=== PATIENT | female | born 1935 ===

== ENCOUNTER 2017-09-23 18:50 | Emergency (ER) | payer MEDICARE ==
[2017-09-23 18:59] VITALS: RESP 20
[2017-09-23] MEDS ORDERED: Tdap Vaccine 0.5 ml Vial (10-64 yrs) IM ONE ×2 (19:16→19:42)
[2017-09-23] MEDS ORDERED: Lidocaine 1% (10 ml) Inj INJ ONE (19:27)
[2017-09-23] MEDS ORDERED: Lidocaine 1% Inj (20ml) ONE (19:32)
--- NOTE | 2017-09-23 19:42 | ED PDOC ---
HPI: Skin/Bite Injury Time Seen by Provider: 09/23/17 19:08 Chief Complaint (Nursing): Abnormal Skin Integrity Chief Complaint (Provider): Dog Bite History Per: Patient History/Exam Limitations: no limitations Onset/Duration Of Symptoms: Mins Current Symptoms Are (Timing): Still Present Location Of Injury: Left: Arm (bicep) Additional Complaint(s): 81 year old female presents to the emergency department post dog bite. Patient reports she was bitten by the neighbors dog and it was an unprovoked attack. - Animal Bite Description Of The Attack: Unprovoked Attack Description Of The Animal: Neighbor's Pet Animal Appears: Unknown Past Medical History Reviewed: Historical Data, Nursing Documentation, Vital Signs Vital Signs: Last Vital Signs Temp 98.6 F 09/23/17 18:55 Pulse 90 09/23/17 18:55 Resp 20 09/23/17 18:55 BP 165/87 H 09/23/17 18:55 Pulse Ox 98 09/23/17 20:08 - Medical History PMH: No Chronic Diseases - Surgical History Surgical History: No Surg Hx - Family History Family History: States: Unknown Family Hx - Home Medications Home Medications: Ambulatory Orders Medication Instructions Recorded Amoxicillin/Clavulanate [Augmentin 1 tab PO BID #20 tab 09/23/17 875 MG-125 MG] - Allergies Allergies/Adverse Reactions: Allergies Allergy/AdvReac Type Severity Reaction Status Date / Time No Known Allergies Allergy Verified 09/23/17 19:15 Review of Systems ROS Statement: Except As Marked, All Systems Reviewed And Found Negative Musculoskeletal: Positive for: Other (laceration to left bicep) Physical Exam - Reviewed Vital Signs Reviewed: Yes - Physical Exam Appears: Positive for: Non-toxic, No Acute Distress Head Exam: Positive for: ATRAUMATIC Skin: Positive for: Normal Color, Warm, Dry. Negative for: Rash Cardiovascular/Chest: Positive for: Regular Rate, Rhythm, Chest Non Tender. Negative for: Tachycardia Respiratory: Positive for: Normal Breath Sounds. Negative for: Rales, Rhonchi, Wheezing, Respiratory Distress Extremity: Positive for: Other (3cm laceration to left bicep no neuro vascular compromise ). Negative for: Tenderness, Deformity, Swelling Neurologic/Psych: Positive for: Alert, Oriented - Laboratory Results Result Diagrams: 09/23/17 20:51 09/23/17 20:51 - ECG O2 Sat by Pulse Oximetry: 98 (RA) Pulse Ox Interpretation: Normal Medical Decision Making Medical Decision Makin Initial Impression 81 year old female presenting with dog bite Initial Plan: * CMP * CBC * Tetanus 0.5mL IM * Lidocaine Hydrochloride 3mL INJ * Unasyn 3gm NS 100ml IVPB Q6 * Reevaluation 1999 Patient tolerated procedure well. See procedure note for details. Documented by Petrona Sandhu acting as a scribe for Heber Yost MD. All medical record entries made by the Scribe were at my direction and personally dictated by me. I have reviewed the chart and agree that the record accurately reflects my personal performance of the history, physical exam, medical decision making, and the department course for this patient. I have also personally directed, reviewed, and agree with the discharge instructions and disposition. Disposition - Clinical Impression Clinical Impression: Dog bite - Patient ED Disposition Is Patient to be Admitted: No Counseled Patient/Family Regarding: Studies Performed, Diagnosis, Need For Followup, Rx Given - Disposition Referrals: [facility] [Outside] Disposition: Routine/Home Disposition Time: 21:20 Condition: FAIR Prescriptions: Amoxicillin/Clavulanate [Augmentin 875 MG-125 MG] 1 tab PO BID #20 tab Instructions: Animal Bites (DC) Forms: [employer] (Sinhala) Procedure: Wound Repair - Time Performed Time Performed: 19:50 - Time Out Time Out: Side verified, Site verified, Patient ID confirmed, Sterile procedures obs. - Procedure Procedure: Wound Repair: laceration repair - Consent Obtained Consent obtained: Verbal - Performed by Performed by: Attending Physician - Indications Indication(s):: Laceration - Location Location:: Left, Arm (bicep) Dimensions Length cm: 3cm - Irrigated Irrigated with ml of normal saline: copiously with NS - Complexity Complexity:: Simple (one layer) (simple interrupted) - Wound repair method Sutures:: # (10), Size (4:0), Type (Nylon sutures) - Patient tolerated procedure Patient Tolerated Procedure:: Well
[2017-09-23 20:57] LABS: BASO # 0.1 K/uL (0.0-0.2); BASO % 0.9 % (0.0-2.0); EOS # 0.1 K/uL (0.0-0.7); EOS % 0.7 % (0.0-4.0); HEMOGLOBIN 12.5 g/dL (12.0-16.0); LYMPH # 2.1 K/uL (1.0-4.3); LYMPH % 16.5 % (20.0-40.0); MEAN CELL VOLUME 88.9 fl (81.0-99.0); MEAN CORPUSCULAR HEMOGLOBIN 28.9 pg (27.0-31.0); MEAN CORPUSCULAR HGB CONC 32.5 g/dL (33.0-37.0); MEAN PLATELET VOLUME 10.9 fl (7.2-11.7); MONO # 1.1 K/uL (0.0-0.8); MONO % 8.4 % (0.0-10.0); NEUT # 9.3 K/uL (1.8-7.0); NEUT % 73.5 % (50.0-75.0); RBC 4.34 Mil/uL (3.80-5.20); RED CELL DISTRIBUTION WIDTH 15.4 % (11.5-14.5); WHITE BLOOD COUNT 12.7 K/uL (4.8-10.8)
[2017-09-23 21:18] LABS: ALB/GLOB RATIO 1.1 (1.0-2.1); ALBUMIN 4.1 g/dL (3.5-5.0); CALCIUM 9.3 mg/dL (8.4-10.2)
[2017-09-23 22:23] VITALS: BP 156/75; PULSE 87; TEMP 99.1; O2SAT 97
--- NOTE | 2017-09-24 00:05 | CARD ---
APPROVED REPORT EKG Measurement Heart [id number] <Conclusion> Normal sinus rhythm Normal ECG
== END 2017-09-23 22:20 | disposition home or self-care (01) ==
LOC: H.ER 18:50
DX: S41.112A Laceration without foreign body of left upper arm, initial encounter (principal); W54.0XXA Bitten by dog, initial encounter; Y92.89 Other specified places as the place of occurrence of the external cause
CPT/HCPCS: 12001; 80053; 82948; 85025; 90471; 90715; 93005; 96365; 99285; J0295

== ENCOUNTER 2017-09-25 09:43 | Emergency (ER) | payer MEDICARE ==
--- NOTE | 2017-09-25 10:30 | ED PDOC ---
HPI: General Adult Time Seen by Provider: 09/25/17 10:28 Chief Complaint (Nursing): Bite Chief Complaint (Provider): wound check, dog bite History Per: Patient Additional Complaint(s): 81-year-old female presents for wound check of dog bite to left arm sustained 2 days ago. Patient was seen in this ED on September 23 at which time sutures were placed. She was sent home with prescription for Augmentin which she is taking. Patient denies fever or chills, denies any drainage or active bleeding. Tetanus up to date. PMD: Dr. Tao Past Medical History Reviewed: Historical Data, Nursing Documentation, Vital Signs Vital Signs: Last Vital Signs Temp 98.8 F 09/25/17 09:59 Pulse 70 09/25/17 09:59 Resp 21 09/25/17 09:59 BP 119/53 L 09/25/17 09:59 Pulse Ox 96 09/25/17 10:30 - Medical History PMH: Diabetes, HTN, Hypercholesterolemia - Family History Family History: States: No Known Family Hx - Living Arrangements Living Arrangements: With Family - Social History Current smoker - smoking cessation education provided: No Alcohol: None Drugs: Denies - Immunization History Hx Tetanus Toxoid Vaccination: Yes (09/23/2017) - Home Medications Home Medications: Ambulatory Orders Medication Instructions Recorded Amoxicillin/Clavulanate [Augmentin 1 tab PO BID #20 tab 09/23/17 875 MG-125 MG] - Allergies Allergies/Adverse Reactions: Allergies Allergy/AdvReac Type Severity Reaction Status Date / Time No Known Allergies Allergy Verified 09/23/17 19:15 Review of Systems ROS Statement: Except As Marked, All Systems Reviewed And Found Negative Constitutional: Negative for: Fever Skin: Positive for: Other (wound check, laceration to left arm (dog bite)) Physical Exam - Reviewed Nursing Documentation Reviewed: Yes Vital Signs Reviewed: Yes - Physical Exam Appears: Positive for: Well, Non-toxic, No Acute Distress Skin: Negative for: Rash Eye Exam: Positive for: Normal appearance Extremity: Positive for: Other (Sutured laceration noted to medial left upper arm, no infection noted, moderate surrounding ecchymosis noted, no active bleeding, no active drainage, wound appears to be healing well, neurovascular intact) Neurologic/Psych: Positive for: Alert, Oriented - ECG O2 Sat by Pulse Oximetry: 96 Pulse Ox Interpretation: Normal Medical Decision Making Medical Decision Makin-year-old female presents for wound check Wound to left arm is healing well, no infection noted. Area was cleansed with normal saline and Betadine, bacitracin and bandage applied. Patient was struck to to continue with Augmentin and follow up with primary doctor in 2-3 days. Advised suture removal 10-14 days. Disposition - Clinical Impression Clinical Impression: Animal bite wound, Dog bite, Laceration - injury - Patient ED Disposition Is Patient to be Admitted: No Counseled Patient/Family Regarding: Diagnosis, Need For Followup - Disposition Referrals: Aníbal Tao MD [Medical Doctor] - Disposition: Routine/Home Disposition Time: 10:59 Condition: STABLE Additional Instructions: Keep wounds clean and dry. Wash daily with soap and water. Continue with antibiotics to completion. Tylenol as needed for pain. Follow up with primary doctor in 2-3 days. Suture removal in 10 days. Instructions: Animal Bites (DC), Wound Care (DC) Forms: [employer] (Nauruan)
[2017-09-25 11:19] VITALS: BP 128/78; PULSE 78; RESP 19; TEMP 97; O2SAT 98
== END 2017-09-25 11:19 | disposition home or self-care (01) ==
LOC: H.ER 09:43
DX: Z48.00 Encounter for change or removal of nonsurgical wound dressing (principal); E11.9 Type 2 diabetes mellitus without complications; E78.00 Pure hypercholesterolemia, unspecified; I10 Essential (primary) hypertension

== ENCOUNTER 2017-10-04 08:38 | Emergency (ER) | payer MEDICARE ==
[2017-10-04 08:53] VITALS: PULSE 79; TEMP 98.8
[2017-10-04 08:54] VITALS: BMI 27.1
--- NOTE | 2017-10-04 10:18 | ED PDOC ---
HPI: Wound Care - HPI Time Seen by Provider: 10/04/17 09:08 Chief Complaint (Nursing): Wound Check Chief Complaint (Provider): Suture Removal Past Medical History Vital Signs: Last Vital Signs Temp 98.8 F 10/04/17 08:50 Pulse 79 10/04/17 08:50 Resp 20 10/04/17 08:50 BP 161/73 H 10/04/17 08:50 Pulse Ox 97 10/04/17 08:50 - Medical History PMH: Diabetes, HTN, Hypercholesterolemia - Family History Family History: States: Unknown Family Hx - Immunization History Hx Tetanus Toxoid Vaccination: Yes (09/23/2017) - Home Medications Home Medications: Ambulatory Orders Medication Instructions Recorded Amoxicillin/Clavulanate [Augmentin 1 tab PO BID #20 tab 09/23/17 875 MG-125 MG] - Allergies Allergies/Adverse Reactions: Allergies Allergy/AdvReac Type Severity Reaction Status Date / Time No Known Allergies Allergy Verified 09/23/17 19:15 - ECG O2 Sat by Pulse Oximetry: 97 Disposition - Disposition
[2017-10-04 10:51] VITALS: BP 148/86; RESP 19; O2SAT 99
== END 2017-10-04 10:51 | disposition home or self-care (01) ==
LOC: H.ER 08:38
DX: Z48.02 Encounter for removal of sutures (principal); E11.9 Type 2 diabetes mellitus without complications; E78.00 Pure hypercholesterolemia, unspecified; I10 Essential (primary) hypertension